=== PATIENT | male | born 1985 | race Caucasian/White ===

== ENCOUNTER 2019-09-14 22:16 | Emergency (ER) | payer SELFPAY ==
--- NOTE | ~2019-09-14 | XR_ITS ---
EXAMINATION: XR chest 2V DATE: 09/14/2019 22:58 INDICATION: Shortness of breath and cough TECHNIQUE: PA and lateral views of the chest are obtained. COMPARISON: 04/23/2015 FINDINGS: The lungs are free of acute opacities. There is no pleural effusion or pneumothorax. The ca rdiomediastinal silhouette is normal. The visualized bones and soft tissues are unremarkable. IMPRESSION: 1. No acute cardiopulmonary abnormality. Reviewed, dictated and finalized at location A.
[2019-09-14 22:29] VITALS: BP 207/103; PULSE 88; RESP 17; TEMP 36.5; O2SAT 97
--- NOTE | 2019-09-14 22:41 | ECG_ITS ---
Measurements Intervals [place] Rate: 67 P: 38 MT: 165 QRS: 37 QRSD: 102 T: 15 QT: 396 QTc: 418 Interpretive Statements SINUS RHYTHM BASELINE ARTIFACT- I, II NORMAL ECG Electronically Signed On 09-15-2019 8:23:19 CDT by Shawn Cotton D.O.
[2019-09-14 22:43] VITALS: BP 152/78; PULSE 77; O2SAT 95
[2019-09-14 22:55] VITALS: PULSE 80
[2019-09-14] MEDS: IPRATROPIUM 0.5 MG/ALBUTEROL SULFATE 2.5 MG AMPUL.NEB 3 ML INHALATION (22:58)
--- NOTE | 2019-09-14 23:00 | ED.GENADULT ---
HPI - General Adult General Chief complaint: Upper Respiratory Infection Stated complaint: shortness of breath, lightheaded,sore throat,cough History of Present Illness HPI narrative: Yogi is a 33M with PMH of COPD and SC during heat exhaustion that presented to the ED with shortness of breath. Yesterday at work he started having shortness of breath while sitting at work. It was accompanied by fevers up to 101.3 as well as nausea and nonbilious nonbloody vomiting. He has also had several episodes of watery diarrhea with this. He has a persistent dry cough and URI type symptoms. He has mild chest discomfort but no lightheadedness or syncope. He has 2 young children at home that have been diagnosed with RSV. Related Data Home Medications Medication Instructions Recorded Confirmed No Home Medications 09/14/19 09/14/19 Allergies Allergy/AdvReac Type Severity Reaction Status Date / Time No Known Allergies Allergy Verified 06/28/19 18:41 Review of Systems Constitutional: Constitutional: Reports as per HPI Eyes: Eyes: Reports no additional eye complaints ENT: Reports system reviewed and no additional complaints, except as documented Cardiovascular: Cardiovascular: Denies rapid heart rate and Denies radiating jaw, neck or arm pain Respiratory: Respiratory: Reports chest congestion, Reports cough, Reports dyspnea and Reports wheezing Gastrointestinal: Gastrointestinal: Reports as per HPI Genitourinary: Genitourinary: Reports no additional male genitourinary complaints Musculoskeletal: Comments: admits myalgias Integumentary/Breasts: Skin/Breast: Reports system reviewed and no additional complaints, except as docu Neurologic: Reports system reviewed and no additional complaints, except as documented Psychiatric: Psychiatric: Reports no additional psychiatric complaints Endocrine: Endocrine: Reports no additional endocrine complaints Hematologic/Lymphatic: Hematologic/Lymphatic: Reports no additional hematologic/lymphatic complaints Allergic/Immunologic: Allergic/Immunologic: Reports no additional allergic/immunologic complaints [facility] Past Medical History Medical History Exogenous obesity Patient denies medical problems Surgical History Surgical History No history of previous surgery Family History Family History Mother No problems noted. Father No problems noted. Other Patient denies significant medical history Social History Social History Years smoked: 18 Smoking status: Current every day smoker Tobacco type: cigarettes Substance use: never Gender identity (if verbalized by the patient): Male Exam Const: General: no acute distress and alert; No confusion Orientation/consciousness: patient oriented x3 Limitations: No altered mental status HENMT: Other: normocephalic, atraumatic Eyes: Conjunctivae: conjunctivae normal Pupils: Equal, round and reactive pupils present Neck: Neck: normal visual inspection Chest: Chest palpation & inspection: normal inspection of the chest Resp: Other: diffuse wheezes and prolonged expiratory phase with cough present during exam Cardio: Rate: regular rate Rhythm: regular rhythm Heart sounds: no murmurs GI: Inspection: non-distended GI Palp: Yes Soft to palpation, No Tenderness to palpation present (GI), No Guarding due to palpation present (GI) and No Rigid due to palpation Urinary Catheter: Urinary Catheter: patent and draining Skin: General skin exam: normal color Rashes: no rashes Other: skin was warm and moist Neuro: General: patient oriented x3 and moves all extremities Extrem: General: normal to inspection Psych: Mental Status: mental status grossly normal Course Course [facility]
[2019-09-14 23:14] LABS: Basophils Absolute Auto 0.07 K/mm3 (0.00-0.10); Basophils Percent Auto 0.7 % (0.0-1.0); Eosinophils Percent Auto 3.2 % (1.0-6.0); Hematocrit 45.4 % (40.0-54.0); Hemoglobin 15.3 g/dL (14.0-18.0); Immature Granulocyte Absolute 0.06 K/mm3 (0.00-0.00); Immature Granulocyte Percent A 0.6 % (0.0-0.0); Lymphocytes Absolute Auto 3.18 K/mm3 (1.10-4.50); Mean Corpuscular HGB Conc 33.7 g/dL (32.0-36.0); Mean Corpuscular Hemoglobin 30.4 pg (27.0-31.0); Mean Corpuscular Volume 90.3 fL (78.0-102.0); Mean Platelet Volume 10.5 fl (8.7-11.0); Monocytes Absolute Auto 0.65 K/mm3 (0.10-0.90); Monocytes Percent Auto 6.9 % (2.0-11.0); Neutrophils Absolute Auto 5.1 K/mm3 (1.7-7.2); Neutrophils Percent Auto 54.6 % (50.0-70.0); Platelet Count Result 264 K/mm3 (150-420); Red Blood Count 5.03 M/mm3 (4.70-6.10); Red Cell Distribution Width 12.6 % (11.6-14.4); White Blood Count 9.4 K/mm3 (4.8-10.8)
[2019-09-14 23:29] LABS: Influenza Control Valid (Valid)
[2019-09-14 23:36] LABS: Alanine Aminotransferase 64 U/L (16-63); Albumin Level 3.5 g/dL (3.4-5.0); Alkaline Phosphatase 116 U/L (46-116); Aspartate Amino Transferase 26 U/L (15-37); Bilirubin,Total 0.2 mg/dL (0.00-1.00); Blood Urea Nitrogen 8 mg/dL (7-18); Carbon Dioxide 30 mmol/L (21-32); Chloride 103 mmol/L (98-108); Estimated Glomerular Filt Rate > 60; Glucose 117 mg/dL (70-99); Osmolality Calculated 289 mOsm/kg (285-295); Sodium 140 mmol/L (136-145); Total Protein 7.5 g/dL (6.4-8.2)
[2019-09-14 23:39] LABS: BNP 14.3 pg/mL (0-100)
[2019-09-14 23:40] LABS: Troponin I < 0.02 ng/mL (0.00-0.056)
[2019-09-14] MEDS: AZITHROMYCIN 250 MG TABLET 500 MG PO (23:40)
[2019-09-14] MEDS: predniSONE 20 MG TABLET 40 MG PO (23:40)
[2019-09-15 00:10] VITALS: BP 155/84; PULSE 78; RESP 20; TEMP 36.7; O2SAT 93
== END 2019-09-15 00:11 | disposition home or self-care (01) ==
PROVIDERS: Emergency Provider Family Medicine; PCP Family Medicine
DX: J44.1 Chronic obstructive pulmonary disease with (acute) exacerbation (principal); F17.200 Nicotine dependence, unspecified, uncomplicated
CPT/HCPCS: 36415; 71046; 80053; 83880; 84484; 85025; 87804; 93005; 94640; 99284; A9270; J7512

== ENCOUNTER 2019-10-09 08:16 | Emergency (ER) | payer SELFPAY ==
[2019-10-09 08:20] VITALS: BP 162/90; PULSE 70; RESP 20; TEMP 36.8; O2SAT 96
--- NOTE | 2019-10-09 08:37 | ED.HA ---
HPI - Headache General Chief Complaint: Headache Stated Complaint: low back pain, headache Time Seen by Provider: 10/09/19 08:38 Source: patient Mode of arrival: ambulatory Limitations: no limitations History of Present Illness HPI Narrative: 33-year-old man with a history of migraines comes in today complaining of a headache which is frontal and bilateral associated with blurry vision, nausea, and some mild dizziness. Patient states that it feels like his typical migraine. He denies head injury, fever, vomiting, recent cough or cold symptoms, rhinorrhea. patient states he also has some low back pain that started after he lifted a heavy television yesterday. He states he has some intermittent numbness and tingling down his right leg to his foot. Patient states he took 2600 mg of ibuprofen yesterday. MD elicited complaint: migraine Pertinent past history: migraines Onset (ago): day(s) (1) Onset description: gradually Location: right, left and frontal Severity: moderate Quality & Timing: throbbing Exacerbating factors: none Relieving factors: nothing Context: occurred at rest Associated symptoms: nausea, tingling and numbness Treatments prior to arrival: ibuprofen Related Data Allergies Allergy/AdvReac Type Severity Reaction Status Date / Time No Known Allergies Allergy Verified 06/28/19 18:41 Review of Systems Constitutional: Constitutional: Denies chills, Denies fever(s) and Denies weakness Eyes: Eyes: Denies change in vision and Denies photophobia ENT: Denies dysphagia, Denies nasal congestion and Denies sore throat Cardiovascular: Cardiovascular: Denies chest pain and Denies radiating jaw, neck or arm pain Respiratory: Respiratory: Reports cough, Denies dyspnea and Denies wheezing Gastrointestinal: Gastrointestinal: Denies abdominal pain, Denies diarrhea, Reports nausea and Denies vomiting Genitourinary: Genitourinary: Denies hematuria, Denies dysuria and Denies urinary frequency Musculoskeletal: Musculoskeletal: Reports back pain, Denies arthralgias, Denies joint swelling and Denies muscle cramps Integumentary/Breasts: Skin/Breast: Denies pruritus, Denies erythema and Denies rash Neurologic: Denies vertigo, Denies dizziness and Denies syncope Psychiatric: Psychiatric: Denies anxiety and Denies depression Endocrine: Endocrine: Denies fatigue, Denies polydipsia and Denies polyuria Hematologic/Lymphatic: Hematologic/Lymphatic: Denies easy bleeding and Denies easy bruising Allergic/Immunologic: Allergic/Immunologic: Denies lip swelling and Denies wheezing [facility] Past Medical History Medical History Exogenous obesity Patient denies medical problems Surgical History Surgical History No history of previous surgery Social History Social History (Updated 10/09/19 @ 08:56 by Lakhwinder Barrera MD) Years smoked: 18 Smoking status: Current every day smoker Tobacco type: cigarettes Alcohol intake: never Substance use: never Living arrangements: with family Gender identity (if verbalized by the patient): Male Exam Const: General: alert Nutritional Appearance: obese Orientation/consciousness: patient oriented x3 Limitations: no limitations Other: Mild acute distress HENMT: Ears: external ears normal, TM's normal bilaterally and EAC's normal Mouth: Yes Normal oral and palatal mucosa present Throat: posterior oropharynx normal Eyes: Conjunctivae: conjunctivae normal Pupils: Equal, round and reactive pupils present EOM: EOMs intact bilaterally Direct Ophthalmoscopy: No photophobia Neck: Neck: normal visual inspection, no lymphadenopathy and lymphadenopathy Resp: Effort & Inspection: normal respiratory effort and not labored Auscultation: clear to auscultation bilaterally, no rales, no rhonchi and no wheezes Cardio: Rate: regular rate Rhythm: regular rhythm Heart sounds
[2019-10-09] MEDS: ONDANSETRON HCL ODT 4 MG TABLET PO (08:55)
--- NOTE | 2019-10-09 09:04 | PC.NURSE ---
0830 pt states took 2400 mg motrin in 24 hour period x 1 dose. with no relief
[2019-10-09 09:11] LABS: Add Urine Microscopic? YES; Appearance Urine Clear (Clear); Bilirubin Urine Negative (Negative); Blood Urine Negative (Negative); Color Urine Yellow (Yellow); Glucose Urine UA Negative (Negative); Ketones Urine Negative (Negative); Leukocyte Esterase Ur Negative (Negative); Nitrate Urine Negative (Negative); Protein Urine 1+ (Negative); Specific Grav Ur >= 1.030 (1.010-1.020); Urobilinogen Urine 0.2 mg/dL (0.2-1.0)
[2019-10-09 09:16] LABS: Basophils Absolute Auto 0.04 K/mm3 (0.00-0.10); Basophils Percent Auto 0.5 % (0.0-1.0); Eosinophils Absolute Auto 0.24 K/mm3 (0.02-0.50); Hematocrit 48.1 % (40.0-54.0); Immature Granulocyte Absolute 0.03 K/mm3 (0.00-0.00); Immature Granulocyte Percent A 0.4 % (0.0-0.0); Lymphocytes Absolute Auto 1.98 K/mm3 (1.10-4.50); Lymphocytes Percent Auto 24.9 % (18.0-42.0); Mean Corpuscular HGB Conc 33.3 g/dL (32.0-36.0); Mean Corpuscular Hemoglobin 30.2 pg (27.0-31.0); Mean Corpuscular Volume 90.9 fL (78.0-102.0); Monocytes Absolute Auto 0.57 K/mm3 (0.10-0.90); Monocytes Percent Auto 7.2 % (2.0-11.0); Neutrophils Absolute Auto 5.1 K/mm3 (1.7-7.2); Platelet Count Result 268 K/mm3 (150-420); Red Blood Count 5.29 M/mm3 (4.70-6.10); Red Cell Distribution Width 12.6 % (11.6-14.4)
[2019-10-09 09:20] LABS: Bacteria Urine Trace /hpf; Granular Casts Urine RARE /lpf; Mucus Urine Moderate /lpf; RBC Urine None seen /hpf (0-2); Squamous Epithelial Cell Urine Rare /hpf (Few); WBC Urine None seen /hpf (0-3)
[2019-10-09 09:35] LABS: Alanine Aminotransferase 46 U/L (16-63); Albumin Level 3.4 g/dL (3.4-5.0); Alkaline Phosphatase 131 U/L (46-116); Anion Gap 12.4 mmol/L (7-16); Aspartate Amino Transferase 21 U/L (15-37); Bilirubin,Total 0.3 mg/dL (0.00-1.00); Blood Urea Nitrogen 11 mg/dL (7-18); Calcium 8.6 mg/dL (8.5-10.1); Carbon Dioxide 29 mmol/L (21-32); Chloride 105 mmol/L (98-108); Estimated CRCL calculation 165 ml/min; Estimated Glomerular Filt Rate > 60; Glucose 122 mg/dL (70-99); Osmolality Calculated 294 mOsm/kg (285-295); Potassium 4.4 mmol/L (3.5-5.1); Salicylate 3.3 mg/dL (2.8-20.0); Sodium 142 mmol/L (136-145); Total Protein 7.2 g/dL (6.4-8.2)
[2019-10-09 09:38] LABS: Acetaminophen 0 ug/mL (10-30)
[2019-10-09 09:58] VITALS: BP 137/87; PULSE 70; RESP 20; TEMP 36.6; O2SAT 97
== END 2019-10-09 10:00 | disposition home or self-care (01) ==
PROVIDERS: Emergency Provider Emergency Medicine; PCP Family Medicine
DX: G43.909 Migraine, unspecified, not intractable, without status migrainosus (principal); S39.012A Strain of muscle, fascia and tendon of lower back, initial encounter; T39.311A Poisoning by propionic acid derivatives, accidental (unintentional), initial encounter; X50.0XXA Overexertion from strenuous movement or load, initial encounter; F17.200 Nicotine dependence, unspecified, uncomplicated
CPT/HCPCS: 36415; 80053; 80307; 81001; 85025; 99283; A9270

== ENCOUNTER 2019-10-14 22:12 | Emergency (ER) | payer SELFPAY ==
--- NOTE | ~2019-10-14 | XR_ITS ---
EXAMINATION: XR chest 1V portable EXAM DATE: 10/14/2019 23:26 INDICATION: Shortness of breath. TECHNIQUE: Portable AP frontal chest x-ray was obtained. Comparison is made to prior examination from 09/14/2019. FINDINGS: The lungs are clear. There are no pleural effusions. Cardiac silhouette is prominent but magnified on this AP technique. There is no pneumothorax suspected. The bones and soft tissues are unremarkable. There is no significant interval change. IMPRESSION: No acute cardiopulmonary findings. Reviewed, dictated and finalized at location G.
[2019-10-14 22:41] VITALS: BP 140/81; PULSE 72; RESP 18; TEMP 36.5; O2SAT 97
--- NOTE | 2019-10-14 22:41 | ED.GENADULT ---
HPI - General Adult General Chief complaint: Shortness of Breath/Dyspnea Stated complaint: breathing trouble, high temp Source: patient History of Present Illness HPI narrative: Yogi is a 33M with a PMH of COPD, migraines and PTSD that presented to the ED with fevers, cough and SOB. He reports that for 3 days he has felt ill. First he started having a dry cough that then progressed to mild shortness of breath. He started having subjective fevers but his temperature never got above 98.1. he is concerned because he a close contact with someone who also felt ill and was near a confirmed case of COVID. He denies any lightheadedness, syncope/near syncope, nausea, vomiting, diarrhea and rashes. He stated that he iis really here for work note because he cannot go to work or be off of work without of physicians note. Related Data Home Medications Medication Instructions Recorded Confirmed No Home Medications 10/14/19 10/14/19 Allergies Allergy/AdvReac Type Severity Reaction Status Date / Time No Known Allergies Allergy Verified 06/28/19 18:41 Review of Systems Constitutional: Constitutional: Denies body ache(s) and Denies weight gain Eyes: Eyes: Denies change in vision ENT: Denies Normal hearing present, Denies vertigo and Denies dizziness Cardiovascular: Cardiovascular: Denies chest pain with activity, Denies syncope, Denies edema and Denies dyspnea on exertion Respiratory: Respiratory: Denies hemoptysis Gastrointestinal: Gastrointestinal: Denies abdominal pain, Denies diarrhea, Denies nausea and Denies vomiting Genitourinary: Genitourinary: Denies dysuria Musculoskeletal: Musculoskeletal: Denies deformity Neurologic: Denies Normal hearing present, Denies behavioral changes, Denies confusion, Denies vertigo, Denies dizziness and Denies syncope Psychiatric: Psychiatric: Denies behavioral changes and Denies confusion Endocrine: Endocrine: Reports no additional endocrine complaints Hematologic/Lymphatic: Hematologic/Lymphatic: Reports no additional hematologic/lymphatic complaints Allergic/Immunologic: Allergic/Immunologic: Reports no additional allergic/immunologic complaints [facility] Past Medical History Medical History Exogenous obesity Patient denies medical problems Surgical History Surgical History No history of previous surgery Social History Social History Years smoked: 18 Smoking status: Current every day smoker Tobacco type: cigarettes Alcohol intake: never Substance use: never Gender identity (if verbalized by the patient): Male Exam Const: General: no acute distress and alert Orientation/consciousness: patient oriented x3 Limitations: No altered mental status HENMT: Other: normocephalic, atraumatic Eyes: Conjunctivae: conjunctivae normal Pupils: Equal, round and reactive pupils present Neck: Neck: normal visual inspection Chest: Chest palpation & inspection: normal inspection of the chest Resp: Other: Was able to speak in complete sentences, no tachypnea but did have diffuse wheezes with prolonged expiratory phase Cardio: Rate: regular rate Rhythm: regular rhythm Heart sounds: no murmurs GI: Inspection: non-distended GI Palp: Yes Soft to palpation and No Tenderness to palpation present (GI) Skin: General skin exam: normal color Rashes: no rashes Neuro: General: patient oriented x3 and moves all extremities Extrem: General: normal to inspection Psych: Mental Status: mental status grossly normal Course Course Emergency Course: Edward was placed in the negative pressure room. He was seen and evaluated. A chest x-ray and EKG were ordered as well as labs. EXAMINATION: XR chest 1V portable EXAM DATE: 10/14/2019 23:26 INDICATION: Shortness of breath. TECHNIQUE: Portable AP frontal
--- NOTE | 2019-10-14 22:52 | PC.NURSE ---
REPORT PROVIDED NEIDA JOHNSON TO TAKE OVER CARE FOR THIS PATIENT
--- NOTE | 2019-10-14 23:10 | ECG_ITS ---
Measurements Intervals [place] Rate: 68 P: 46 [place]: 162 QRS: 37 QRSD: 100 T: 20 QT: 387 QTc: 413 Interpretive Statements SINUS RHYTHM CANNOT RULE OUT SEPTAL INFARCT, AGE INDETERMINATE ABNORMAL ECG Electronically Signed On 10-15-2019 8:45:11 CDT by Shawn Cotton D.O.
[2019-10-14] MEDS: ALBUTEROL SULFATE (*SP) INHALER 2 PUFF INHALATION (23:37)
[2019-10-14 23:42] LABS: Basophils Absolute Auto 0.06 K/mm3 (0.00-0.10); Basophils Percent Auto 0.6 % (0.0-1.0); Eosinophils Absolute Auto 0.34 K/mm3 (0.02-0.50); Eosinophils Percent Auto 3.1 % (1.0-6.0); Hematocrit 47.6 % (40.0-54.0); Hemoglobin 15.8 g/dL (14.0-18.0); Immature Granulocyte Absolute 0.05 K/mm3 (0.00-0.00); Immature Granulocyte Percent A 0.5 % (0.0-0.0); Lymphocytes Absolute Auto 3.58 K/mm3 (1.10-4.50); Lymphocytes Percent Auto 33.1 % (18.0-42.0); Mean Corpuscular HGB Conc 33.2 g/dL (32.0-36.0); Mean Corpuscular Hemoglobin 30.2 pg (27.0-31.0); Mean Corpuscular Volume 90.8 fL (78.0-102.0); Mean Platelet Volume 11.1 fl (8.7-11.0); Monocytes Absolute Auto 0.78 K/mm3 (0.10-0.90); Monocytes Percent Auto 7.2 % (2.0-11.0); Neutrophils Percent Auto 55.5 % (50.0-70.0); Platelet Count Result 286 K/mm3 (150-420); Red Blood Count 5.24 M/mm3 (4.70-6.10); Red Cell Distribution Width 12.4 % (11.6-14.4); White Blood Count 10.8 K/mm3 (4.8-10.8)
[2019-10-15 00:02] LABS: Alanine Aminotransferase 52 U/L (16-63); Albumin Level 3.5 g/dL (3.4-5.0); Alkaline Phosphatase 130 U/L (46-116); Anion Gap 11.4 mmol/L (7-16); Aspartate Amino Transferase 21 U/L (15-37); Bilirubin,Total 0.2 mg/dL (0.00-1.00); Blood Urea Nitrogen 12 mg/dL (7-18); Carbon Dioxide 31 mmol/L (21-32); Chloride 104 mmol/L (98-108); Estimated CRCL calculation 166 ml/min; Estimated Glomerular Filt Rate > 60; Glucose 98 mg/dL (70-99); Osmolality Calculated 293 mOsm/kg (285-295); Potassium 4.4 mmol/L (3.5-5.1); Sodium 142 mmol/L (136-145); Total Protein 7.3 g/dL (6.4-8.2)
--- NOTE | 2019-10-15 00:04 | PHAR ---
[address] Nguyen ordered for Combivent Respimat MDI inhaler x1 puff c spacer. Med given as ordered but ERP unable to get order placed in computer as no med available in pyxis. Med pulled from 2nd floor and given as per order.
[2019-10-15 00:06] LABS: BNP 7.2 pg/mL (0-100); Influenza Control Valid (Valid)
[2019-10-15 00:07] LABS: Troponin I < 0.02 ng/mL (0.00-0.056)
[2019-10-15 00:23] VITALS: BP 139/60; PULSE 83; RESP 20; TEMP 37.3; O2SAT 97
== END 2019-10-15 00:35 | disposition home or self-care (01) ==
PROVIDERS: Emergency Provider Family Medicine; PCP Family Medicine
DX: J44.1 Chronic obstructive pulmonary disease with (acute) exacerbation (principal)
CPT/HCPCS: 36415; 71045; 80053; 83880; 84484; 85025; 87804; 93005; 99282; 99284; A9270

== ENCOUNTER 2019-12-10 14:24 | Emergency (ER) | payer SELFPAY ==
[2019-12-10 14:45] VITALS: BP 139/70; PULSE 91; RESP 22; TEMP 36.8; O2SAT 97
--- NOTE | 2019-12-10 14:55 | ECG_ITS ---
Measurements Intervals [place] Rate: 72 P: 45 ID: 159 QRS: 69 QRSD: 102 T: 3 QT: 388 QTc: 426 Interpretive Statements SINUS RHYTHM WITH SINUS ARRHYTHMIA LOW QRS VOLTAGE IN PRECORDIAL LEADS BORDERLINE ECG Electronically Signed On 12-10-2019 15:49:51 CDT by Shawn Cotton D.O.
--- NOTE | 2019-12-10 15:02 | ED.GENADULT ---
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 The patient does have a history of heart disease with no surgery and no stents placed currently just on aspirin and no other medications. Onset (ago): hour(s) Radiation: non-radiation Severity: moderate Relieving factors: none Exacerbating factors: none Associated symptoms: nausea/vomiting Treatments prior to arrival: none Related Data Home Medications Medication Instructions Recorded Confirmed No Home Medications 10/14/19 12/10/19 Allergies Allergy/AdvReac Type Severity Reaction Status Date / Time No Known Allergies Allergy Verified 06/28/19 18:41 Review of Systems Review of Systems: All systems reviewed & are unremarkable except as noted in HPI and below PMFSH Past Medical History Medical History Exogenous obesity Patient denies medical problems Surgical History Surgical History No history of previous surgery Family History Family History Mother No problems noted. Father No problems noted. Other Patient denies significant medical history Social History Social History Years smoked: 18 Smoking status: Current every day smoker Tobacco type: cigarettes Alcohol intake: never Substance use: never Gender identity (if verbalized by the patient): Male Exam Const: General: no acute distress and alert Nutritional Appearance: well nourished Orientation/consciousness: patient oriented x3 HENMT: Head: normal to inspection Eyes: Conjunctivae: conjunctivae normal Pupils: Equal, round and reactive pupils present Neck: Neck: normal visual inspection Chest: Chest palpation & inspection: normal inspection of the chest Resp: Effort & Inspection: normal respiratory effort Auscultation: clear to auscultation bilaterally Cardio: Rhythm: regular rhythm GI: GI Palp: Yes Soft to palpation : Testes: Testes normal Skin: General skin exam: normal color Rashes: no rashes Neuro: General: patient oriented x3, moves all extremities, no meningeal signs and no focal motor deficits Psych: Appearance: grossly normal Mental Status: mental status grossly normal Thought content: Yes Normal thought content present Course Course Emergency Course: Patient reassured that his labs a cane pack normal with a normal EKG patient received IV fluids and was informed to follow-up with his primary care physician if symptoms persist. Patient requested a note for work and that was given. Vital Signs Vital signs: Vital Signs Temperature 36.8 C 12/10/19 14:45 Pulse Rate 91 12/10/19 14:45 Respiratory Rate 22 H 12/10/19 14:45 Blood Pressure 139/70 12/10/19 14:45 Pulse Oximetry 97 12/10/19 14:45 Temperature 36.8 C 12/10/19 14:45 Pulse Rate 91 12/10/19 14:45 Respiratory Rate 22 H 12/10/19 14:45 Blood Pressure 139/70 12/10/19 14:45 Pulse Oximetry 97 12/10/19 14:45 Medical Decision Making Vital Signs Vital Signs: Vital Signs Temperature 36.8 C 12/10/19 14:45 Pulse Rate 91 12/10/19 14:45 Respiratory Rate 22 H 12/10/19 14:45 Blood Pressure 139/70 12/10/19 14:45 Pulse Oximetry 97 12/10/19 14:45 Temperature 36.8 C 12/10/19 14:45 Pulse Rate 91 12/10/19 14:45 Respiratory Rate 22 H 12/10/19 14:45 Blood Pressure 139/70 12/10/19 14:45
[2019-12-10] MEDS: SODIUM CHLORIDE 0.9% IV 1,000 ML 999 ML IV CONT (15:10)
[2019-12-10] MEDS: ONDANSETRON INJ 4 MG/2 ML VIAL IV PUSH (15:10)
[2019-12-10 15:13] LABS: Mean Corpuscular HGB Conc 33.3 g/dL (32.0-36.0); Mean Corpuscular Hemoglobin 30.2 pg (27.0-31.0); Mean Corpuscular Volume 90.5 fL (78.0-102.0); Mean Platelet Volume 10.8 fl (8.7-11.0); Platelet Count Result 242 K/mm3 (150-420); Red Blood Count 4.97 M/mm3 (4.70-6.10); Red Cell Distribution Width 12.6 % (11.6-14.4); White Blood Count 9.2 K/mm3 (4.8-10.8)
[2019-12-10 15:27] VITALS: RESP 15; O2SAT 100
[2019-12-10 15:31] LABS: Alanine Aminotransferase 42 U/L (16-63); Albumin Level 3.2 g/dL (3.4-5.0); Alkaline Phosphatase 129 U/L (46-116); Aspartate Amino Transferase 19 U/L (15-37); Bilirubin,Total 0.2 mg/dL (0.00-1.00); Blood Urea Nitrogen 13 mg/dL (7-18); Calcium 8.7 mg/dL (8.5-10.1); Carbon Dioxide 33 mmol/L (21-32); Chloride 105 mmol/L (98-108); Creatine Kinase 154 U/L (39-308); Estimated CRCL calculation 159 ml/min; Estimated Glomerular Filt Rate > 60; Glucose 113 mg/dL (70-99); Osmolality Calculated 295 mOsm/kg (285-295); Sodium 142 mmol/L (136-145); Total Protein 6.9 g/dL (6.4-8.2)
[2019-12-10 15:40] LABS: Troponin I < 0.02 ng/mL (0.00-0.056)
== END 2019-12-10 16:11 | disposition home or self-care (01) ==
PROVIDERS: Emergency Provider Emergency Medicine
DX: T67.5XXA Heat exhaustion, unspecified, initial encounter (principal)
CPT/HCPCS: 36415; 80053; 82550; 84484; 85027; 93005; 96361; 96374; 99282; 99284; J2405; J7030

== ENCOUNTER 2020-01-01 13:13 | Emergency (ER) | payer SELFPAY ==
--- NOTE | ~2020-01-01 | XR_ITS ---
EXAMINATION: XR chest 1V portable DATE: 01/01/2020 14:14 INDICATION: Right-sided chest pain TECHNIQUE: frontal view of the chest was obtained. COMPARISON: Chest radiograph dated 10/14/2019 and 09/14/2019 FINDINGS: Lordotic positioning which results in artifactual appearance of small lung volumes and elevation of t he right hemidiaphragm. No focal airspace opacities, pulmonary edema, pleural effusion or pneumothora x. The cardiomediastinal silhouette is within normal limits for AP technique. IMPRESSION: 1. No acute cardiopulmonary disease. Reviewed, dictated and finalized at location A.
[2020-01-01 13:15] VITALS: PULSE 63
[2020-01-01 13:20] VITALS: BP 157/82; PULSE 70; RESP 15; TEMP 36.8; O2SAT 97
--- NOTE | 2020-01-01 13:34 | ECG_ITS ---
Measurements Intervals [place] Rate: 63 P: 45 [place]: 161 QRS: 25 QRSD: 102 T: 23 QT: 391 QTc: 403 Interpretive Statements SINUS RHYTHM WITH SINUS ARRHYTHMIA CANNOT RULE OUT SEPTAL INFARCT, AGE INDETERMINATE ABNORMAL ECG Electronically Signed On 01-01-2020 14:49:13 CDT by Shawn Cotton D.O.
[2020-01-01] MEDS: SODIUM CHLORIDE 0.9% IV 1,000 ML 999 ML IV CONT (13:47)
[2020-01-01 13:49] LABS: Basophils Absolute Auto 0.06 K/mm3 (0.00-0.10); Basophils Percent Auto 0.6 % (0.0-1.0); Eosinophils Absolute Auto 0.29 K/mm3 (0.02-0.50); Eosinophils Percent Auto 2.9 % (1.0-6.0); Hemoglobin 15.1 g/dL (14.0-18.0); Immature Granulocyte Absolute 0.09 K/mm3 (0.00-0.00); Immature Granulocyte Percent A 0.9 % (0.0-0.0); Lymphocytes Absolute Auto 2.44 K/mm3 (1.10-4.50); Lymphocytes Percent Auto 24.8 % (18.0-42.0); Mean Corpuscular HGB Conc 33.6 g/dL (32.0-36.0); Mean Corpuscular Hemoglobin 30.4 pg (27.0-31.0); Mean Corpuscular Volume 90.5 fL (78.0-102.0); Mean Platelet Volume 10.7 fl (8.7-11.0); Monocytes Absolute Auto 0.63 K/mm3 (0.10-0.90); Monocytes Percent Auto 6.4 % (2.0-11.0); Neutrophils Absolute Auto 6.3 K/mm3 (1.7-7.2); Neutrophils Percent Auto 64.4 % (50.0-70.0); Platelet Count Result 263 K/mm3 (150-420); Red Blood Count 4.97 M/mm3 (4.70-6.10); Red Cell Distribution Width 12.7 % (11.6-14.4); White Blood Count 9.8 K/mm3 (4.8-10.8)
[2020-01-01 14:04] LABS: D Dimer 0.24 mg/L (0.19-0.50); Partial Thromboplastin Time 32.9 SEC (22.3-31.6); Prothrombin Time 10.5 Seconds (9.64-11.0)
[2020-01-01 14:07] LABS: Alanine Aminotransferase 45 U/L (16-63); Albumin Level 3.2 g/dL (3.4-5.0); Alkaline Phosphatase 129 U/L (46-116); Anion Gap 11.9 mmol/L (7-16); Aspartate Amino Transferase 21 U/L (15-37); BNP 18 pg/mL (0-100); Bilirubin,Total 0.2 mg/dL (0.00-1.00); Blood Urea Nitrogen 13 mg/dL (7-18); Calcium 8.5 mg/dL (8.5-10.1); Carbon Dioxide 28 mmol/L (21-32); Chloride 105 mmol/L (98-108); Estimated CRCL calculation 176 ml/min; Estimated Glomerular Filt Rate > 60; Glucose 147 mg/dL (70-99); Osmolality Calculated 295 mOsm/kg (285-295); Potassium 3.9 mmol/L (3.5-5.1); Sodium 141 mmol/L (136-145); Total Protein 7.1 g/dL (6.4-8.2)
[2020-01-01 14:08] LABS: Troponin I < 0.02 ng/mL (0.00-0.056)
--- NOTE | 2020-01-01 14:36 | ED.GENADULT ---
HPI - General Adult General Chief complaint: Chest Pain Stated complaint: chest pains and pains all down right side Source: patient Mode of arrival: ambulatory Limitations: no limitations History of Present Illness HPI narrative: Patient is a 34-year-old male who states that he is here in the emergency department because he needs a note for work tomorrow. Patient states this all started last night about midnight when he had been working out in the heat, and he apparently passed out. Patient states that he was supposed to do something but was passed out and unable to respond to whoever was requesting him to do something on the radio. 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 He describes it as being extremely hot. He states that his clothes are absolutely drainage when he is done with his shift. Patient tells me that he is going to need a note for work today so that he can recover. Additionally he states that the entire right side of his body from the top of his shoulder down to his foot as feels strange . The right side is not numb, it is not weak, it simply feels different. Patient has discomfort on the right side of his chest right side of his abdomen and right leg right arm right shoulder. He has no other symptoms he does not have fevers or chills no cough no sore throat no nausea high he does state he had 1 loose bowel movement today however was the only bowel movement he has had for 2 days. Onset (ago): hour(s) ( Twelve) Location: right ( pain is not isolated to the chest that is entire right side of body.) Severity: mild Quality: constant ( Just feels weird ) Pain Consistency: constant Relieving factors: none Exacerbating factors: none Associated symptoms: denies other symptoms Treatments prior to arrival: none Related Data Home Medications Medication Instructions Recorded Confirmed aspirin [Adult Low Dose Aspirin] 81 mg PO DAILY 01/01/20 01/01/20 Allergies Allergy/AdvReac Type Severity Reaction Status Date / Time No Known Allergies Allergy Verified 06/28/19 18:41 [facility] Social History Social History Years smoked: 18 Smoking status: Current every day smoker Tobacco type: cigarettes Alcohol intake: never Substance use: never Gender identity (if verbalized by the patient): Male Exam Const: General: no acute distress HENMT: Head: normal to inspection General nose exam: Normal external nose present Mouth: Yes Normal oral and palatal mucosa present, Yes moist mucous membranes and No dry mucous membranes Eyes: Conjunctivae: conjunctivae normal Pupils: Equal, round and reactive pupils present Neck: Neck: normal visual inspection Chest: Chest palpation & inspection: normal inspection of the chest Resp: Effort & Inspection: normal respiratory effort Auscultation: clear to auscultation bilaterally Cardio: Rate: regular rate Rhythm: regular rhythm GI: GI Palp: Yes Soft to palpation, No Tenderness to palpation present (GI) and No Guarding due to palpation present (GI) Auscultation: normal bowel sounds Back/Spine/Pelvis: Back: no CVA tenderness Skin: General skin exam: normal color Rashes: no rashes Neuro: General: patient oriented x3, moves all extremities and no focal motor deficits Speech: normal speech Extrem: General: normal to inspection Psych: Appearance: grossly normal Mental Status: mental status grossly normal Thought content: Yes Normal thought content present Course Course Emergency Course: patient did state that he needs a note that will give him the entire weekend off for recovery wants a note to state that he can return to work on Saturday. I do not believe that this is necessary given the evaluation of his labs, however I will give him a note for lyn
[2020-01-01 15:21] LABS: Add Urine Microscopic? YES; Appearance Urine Clear (Clear); Bilirubin Urine Negative (Negative); Blood Urine Negative (Negative); Color Urine Yellow (Yellow); Glucose Urine UA Negative (Negative); Ketones Urine Negative (Negative); Leukocyte Esterase Ur Negative LEU/UL (Negative); Nitrate Urine Negative (Negative); Protein Urine 1+ (Negative); Specific Grav Ur >= 1.030 (1.010-1.020); Urobilinogen Urine 0.2 mg/dL (0.2-1.0); pH Urine 5.5 (5.0-8.0)
[2020-01-01 15:25] LABS: RBC Urine None seen /hpf (0-2); WBC Urine None seen /hpf (0-3)
[2020-01-01 15:26] LABS: Amphetamine Screen Urine Negative (Negative); Bacteria Urine Trace /hpf; Barbiturate Screen Urine Negative (Negative); Benzodiazepines Screen Urine Negative (Negative); Cannabinoid Screen Urine Negative (Negative); Cocaine Screen Urine Negative (Negative); Methadone Screen Urine Negative (Negative); Mucus Urine Moderate /lpf; Opiate Screen Urine Negative (Negative); Phencyclidine Screen Urine Negative (Negative); Squamous Epithelial Cell Urine Rare /hpf (Few)
[2020-01-01 15:30] VITALS: BP 142/85; PULSE 69; RESP 10; O2SAT 96
== END 2020-01-01 15:40 | disposition home or self-care (01) ==
PROVIDERS: Emergency Provider Emergency Medicine; PCP Family Medicine
DX: T67.2XXA Heat cramp, initial encounter (principal)
CPT/HCPCS: 36415; 71045; 80053; 80307; 81001; 83880; 84484; 85025; 85380; 85610; 85730; 93005; 96360; 99283; 99284; J7030

== ENCOUNTER 2020-01-15 13:32 | Emergency (ER) | payer SELFPAY ==
[2020-01-15 13:35] VITALS: BP 171/92; PULSE 83; RESP 20; TEMP 36.9; O2SAT 96
--- NOTE | 2020-01-15 14:16 | ED.GENADULT ---
HPI - General Adult General Chief complaint: Nausea/Vomiting/Diarrhea Stated complaint: has been exposed to covid Time Seen by Provider: 01/15/20 14:16 History of Present Illness HPI narrative: 34-year-old male patient is here with chief complaints of sore throat for the last 4 days. He states that he has also had some dry cough and fever. He states that he has had mild diarrhea. He denies any vomiting ,he denies any chills. The patient states that he ate out at a restaurant a week ago and was later notified that they had 2 positive patients with COVID of 19 and is requesting to be tested. Patient states that he is otherwise in good health. He denies any abdominal pain. He denies any chest pain or difficulty breathing. He is a smoker and is trying to cut back Related Data Home Medications Medication Instructions Recorded Confirmed aspirin [Adult Low Dose Aspirin] 81 mg PO DAILY 01/01/20 01/01/20 Allergies Allergy/AdvReac Type Severity Reaction Status Date / Time No Known Allergies Allergy Verified 06/28/19 18:41 Review of Systems Review of Systems: All systems reviewed & are unremarkable except as noted in HPI and below PMFSH Past Medical History Medical History Exogenous obesity Patient denies medical problems Surgical History Surgical History No history of previous surgery Family History Family History Mother No problems noted. Father No problems noted. Other Patient denies significant medical history Social History Social History Years smoked: 18 Smoking status: Current every day smoker Tobacco type: cigarettes Alcohol intake: never Substance use: never Gender identity (if verbalized by the patient): Male Exam Const: General: no acute distress and alert Nutritional Appearance: obese Orientation/consciousness: patient oriented x3 HENMT: Head: normal to inspection Other: moderate posterior pharyngeal erythema is noted however there is no swelling of the tonsils or any exudate. Eyes: Pupils: Equal, round and reactive pupils present EOM: EOMs intact bilaterally Chest: Chest palpation & inspection: normal inspection of the chest Resp: Effort & Inspection: normal respiratory effort Auscultation: clear to auscultation bilaterally Cardio: Rate: regular rate Rhythm: regular rhythm GI: GI Palp: Yes Soft to palpation and No Tenderness to palpation present (GI) Skin: General skin exam: normal color, no jaundice and no pallor Rashes: no rashes Neuro: General: patient oriented x3, moves all extremities, no focal motor deficits and CN's II-XI intact bilaterally Speech: normal speech Gait exam (Neuro): Normal gait present Course Course Emergency Course: Patient has a positive strep screen and will be started on Augmentin. The patient is aware of that . he also knows about the pending status of COVID test that has been sent today . will discharge the patient home Discharge Plan Discharge Prescriptions: No Action aspirin [Adult Low Dose Aspirin] 81 mg Tablet,Delayed Release (Dr/Ec) 81 mg PO DAILY RF: 0
[2020-01-15 15:10] VITALS: RESP 20; O2SAT 100
[2020-01-16 00:16] LABS: SARS-CoV-2 RNA PCR Negative
== END 2020-01-15 15:25 | disposition home or self-care (01) ==
PROVIDERS: Emergency Provider Emergency Medicine; PCP Family Medicine
DX: J02.0 Streptococcal pharyngitis (principal)
CPT/HCPCS: 87635; 87880; 99282; 99283; C9803; U0003

== ENCOUNTER 2020-07-09 23:51 | Emergency (ER) | payer SELFPAY ==
[2020-07-09 23:51] VITALS: BP 199/113; PULSE 79; RESP 20; TEMP 36.8; O2SAT 96
[2020-07-10] MEDS: KETOROLAC (*BKC) 60 MG/2 ML VIAL IM (00:20)
[2020-07-10] MEDS: cefTRIAXone 1 GM VIAL IM (00:20)
--- NOTE | 2020-07-10 00:32 | ED.DENTAL ---
HPI - Dental/Oral General Chief complaint: Dental/Oral Stated complaint: PAIN Source: patient History of Present Illness HPI Narrative: this is a 34-year-old male with chronic dental pain and tooth decay presents with some dental pain with some rating his pain at about a 10/10 with no fever chills no shortness of breath patient states that he has an appointment with a dentist in 3 weeks. MD Complaint: tooth pain Teeth map: 1. Chronic tooth decay with some surrounding gum inflammation Onset (ago): day(s) Duration: constant Severity scale (1-10): 10 Relieving factors: NSAIDs Exacerbating factors: chewing Context: history of dental caries Associated symptoms: gum swelling Related Data Allergies Allergy/AdvReac Type Severity Reaction Status Date / Time No Known Allergies Allergy Verified 06/28/19 18:41 Review of Systems Review of Systems: All systems reviewed & are unremarkable except as noted in HPI and below PMFSH Past Medical History Medical History (Updated 07/10/20 @ 00:34 by Ld Eagle MD) Exogenous obesity Patient denies medical problems Surgical History Surgical History No history of previous surgery Family History Family History Mother No problems noted. Father No problems noted. Other Patient denies significant medical history Social History Social History Years smoked: 18 Smoking status: Current every day smoker Tobacco type: cigarettes Alcohol intake: never Substance use: never Gender identity (if verbalized by the patient): Male Exam Const: General: no acute distress HENMT: Head: normal to inspection Eyes: Conjunctivae: conjunctivae normal Pupils: Equal, round and reactive pupils present Neck: Neck: normal visual inspection Chest: Chest palpation & inspection: normal inspection of the chest Resp: Effort & Inspection: normal respiratory effort Auscultation: clear to auscultation bilaterally Cardio: Rate: regular rate Rhythm: regular rhythm Urinary Catheter: Urinary Catheter: patent and draining Back/Spine/Pelvis: Back: no CVA tenderness Skin: General skin exam: normal color Rashes: no rashes Neuro: General: patient oriented x3, moves all extremities and no meningeal signs Extrem: General: normal to inspection Psych: Appearance: grossly normal Mental Status: mental status grossly normal Course Course Emergency Course: patient received Toradol and a dose of ceftriaxone and was advised to take medicine as prescribed and follow-up with his dentist Critical Care Time Critical Care Time Critical Care Time: No Discharge Plan Discharge Clinical Impression: Dental abscess, Toothache, Dental caries Patient Disposition: Home, Self-Care Condition: Stable Instructions: Antibiotic Form, Dental Abscess (ED), Toothache (ED) Additional Instructions: follow-up with dentist in take medicine as prescribed. Prescriptions: New amoxicillin 500 mg tablet 500 mg PO TID Qty: 30 RF: 0 naproxen 500 mg tablet 500 mg PO BID Qty: 14 RF: 0 Follow-up/Referrals: UNKNOWN,DOCTOR [Primary Care Provider] - Stand Alone Forms: Work/School Release IP Time of Disposition: 00:35
[2020-07-10 01:30] VITALS: BP 175/82; PULSE 89; RESP 20; TEMP 37.1; O2SAT 97
[2020-07-10 01:55] VITALS: TEMP 36.6
== END 2020-07-10 01:33 | disposition home or self-care (01) ==
PROVIDERS: Emergency Provider Emergency Medicine
DX: K04.7 Periapical abscess without sinus (principal); K08.89 Other specified disorders of teeth and supporting structures; K02.9 Dental caries, unspecified
CPT/HCPCS: 96372; 99283; 99284; J0696; J1885